=== PATIENT | female | born 1970 | race Two or more races ===

== ENCOUNTER 2017-02-07 10:41 | Emergency (ER) | payer MEDICAID ==
[~2017-02-07] VITALS: Ht 160 cm; Wt 86.2 kg
[2017-02-07 11:42] VITALS: BP 163/32
== END 2017-02-07 11:59 | disposition home or self-care (01) ==
LOC: ER 10:43
DX: J01.10 Acute frontal sinusitis, unspecified (principal); E11.9 Type 2 diabetes mellitus without complications

== ENCOUNTER 2024-03-06 14:38 | Emergency (ER) | payer MEDICAID, OTHER ==
[~2024-03-06] VITALS: Ht 162.6 cm; Wt 85.4 kg
[2024-03-06 15:54] VITALS: BP 121/65; PULSE 70; RESP 18; TEMP 98; O2SAT 100
[2024-03-06] MEDS: KETOROLAC TROMETH 30 MG/ML 1ML VIAL IM ONE (16:29)
[2024-03-06] MEDS ORDERED: IBUP1TAB5 PO (17:06)
[2024-03-06] MEDS ORDERED: CYCL-837 PO (17:06)
== END 2024-03-06 17:20 | disposition home or self-care (01) ==
LOC: ER 14:38
DX: M79.652 Pain in left thigh (principal); I10 Essential (primary) hypertension; E11.9 Type 2 diabetes mellitus without complications; E78.5 Hyperlipidemia, unspecified; Z88.0 Allergy status to penicillin; Z88.2 Allergy status to sulfonamides
CPT/HCPCS: 93971; 96372; 99285; J1885